=== PATIENT | female | born 2000 | race Hispanic/Latino ===

== ENCOUNTER 2022-02-24 00:10 | Emergency (ER) | payer MEDICAID ==
[~2022-02-24] VITALS: Ht 152.4 cm; Wt 54.4 kg
[~2022-02-24 00:10] MED LIST: PREN1TAB63 PO
[2022-02-24 00:12] VITALS: BP 154/97
== END 2022-02-24 01:00 | disposition home or self-care (01) ==
LOC: EDH 00:10
DX: R21 Rash and other nonspecific skin eruption (principal)

== ENCOUNTER 2022-12-09 03:59 | Emergency (ER) | payer MEDICAID ==
[~2022-12-09] VITALS: Ht 165.1 cm; Wt 63.5 kg
[2022-12-09] MEDS ORDERED: KETOROLAC 30MG VIAL (30MG/ML) ONE (04:38)
[2022-12-09] MEDS ORDERED: MORPHINE 4 MG SYG ONE (04:52)
[2022-12-09] MEDS ORDERED: KETOROLAC 30MG VIAL (30MG/ML) IM ONE (05:00)
[2022-12-09] MEDS ORDERED: MORPHINE 4 MG SYG IM ONE (05:00)
[2022-12-09 05:27] VITALS: BP 131/60
[2022-12-09] MEDS ORDERED: IBUP-1493 PO (05:53)
== END 2022-12-09 06:01 | disposition home or self-care (01) ==
LOC: EDH 03:59
DX: S82.242A Displaced spiral fracture of shaft of left tibia, initial encounter for closed fracture (principal); W18.39XA Other fall on same level, initial encounter; Y93.89 Activity, other specified; Y92.89 Other specified places as the place of occurrence of the external cause; Y99.8 Other external cause status
CPT/HCPCS: 99284; 73562; 73590; 96372 ×2; J2270; J1885